=== PATIENT | male | born 1985 | race Caucasian/White ===

== ENCOUNTER 2016-08-28 19:15 | Emergency (ER) | payer BC ==
[2016-08-28 19:17] VITALS: BP 137/78
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
[2016-08-28] MEDS ORDERED: CYCLOBENZAPRINE 10 MG TABLET. PO ONE (20:00)
[2016-08-28] MEDS ORDERED: PREDNISONE 20 MG TABLET PO ONE (20:00)
[2016-08-28] MEDS ORDERED: CYCL10TA2 PO (20:04)
== END 2016-08-28 20:08 | disposition home or self-care (01) ==
LOC: ER 19:15
DX: S09.90XA Unspecified injury of head, initial encounter (principal); M54.5 Low back pain; Z88.0 Allergy status to penicillin; V49.59XA Passenger injured in collision with other motor vehicles in traffic accident, initial encounter; Y93.89 Activity, other specified; Y92.89 Other specified places as the place of occurrence of the external cause; Y99.8 Other external cause status
CPT/HCPCS: 70450; 99284; J7512